=== PATIENT | female | born 1985 | race Caucasian/White ===

== ENCOUNTER → 2021-01-27 | Outpatient (CLI) | payer OTHER ==
[~2021-01-27] MED LIST: BENTYL 20MG TAB20 MG PO; ZOFRAN ODT 4 MG4 MG PO
== END ==
LOC: KOH-I 11:28
DX: N20.0 Calculus of kidney (principal); R31.9 Hematuria, unspecified; R50.9 Fever, unspecified; R11.10 Vomiting, unspecified
CPT/HCPCS: 74176

== ENCOUNTER → 2021-06-18 | Outpatient (CLI) | payer OTHER | LOC: KOH-I 14:44 | DX: M06.842 Other specified rheumatoid arthritis, left hand (principal); M06.841 Other specified rheumatoid arthritis, right hand | CPT/HCPCS: 73130 ==